=== PATIENT | male | born 1955 | race Caucasian/White ===

== ENCOUNTER 2019-02-06 05:34 | Outpatient (CLI) | payer OTHER ==
[~2019-02-06] VITALS: Ht 177.8 cm; Wt 79.1 kg
== END 2019-02-06 12:13 ==
LOC: PREOP 05:34
PROVIDERS: ATTEND Internal Medicine
DX: Z01.818 Encounter for other preprocedural examination (principal)

== ENCOUNTER 2019-02-10 08:06 | Day surgery (SDC) | payer OTHER ==
--- NOTE | 2019-01-26 07:31 | HISTORY AND PHYSICAL ---
DATE OF SERVICE: COLONOSCOPY HISTORY AND PHYSICAL HISTORY: The patient is a 63-year-old white male referred for screening colonoscopy by Dr. Terrell. I performed his only other screening colonoscopy a little over 10 years ago, at which time he had one hyperplastic polyp that removed from the distal sigmoid colon. No other abnormalities were noted. He is not aware of any family history of colon cancer. He reports he has been feeling well. He has noted no bright red blood per rectum, melena or change in bowel habit or change in weight. He reports that he feels well. PAST MEDICAL HISTORY: Noncontributory. MEDICATIONS: He takes no current medication. PAST SURGICAL HISTORY: He had an L5-S1 diskectomy with apparent fusion. He has had left inguinal hernia repair in the distant past and a tonsillectomy and adenoidectomy in the distant past. FAMILY HISTORY: His father was diagnosed with prostate cancer at the age of 54, ultimately succumbed to the disease at the age of 74. He is not aware of any family history for colon cancer or polyps. SOCIAL HISTORY: The patient is employed, with no past smoking or drinking history. REVIEW OF SYSTEMS: CONSTITUTIONAL: The patient has had no change in weight, night sweats, chills or fever. CARDIOVASCULAR: He denies chest pain, palpitations, syncope, presyncope, orthopnea, PND or pedal edema. PULMONARY: He denies cough, shortness of breath, or wheezing. GASTROINTESTINAL: As noted in the HPI. PHYSICAL EXAMINATION: GENERAL: Reveals a normal weight, well-appearing white male, in no acute distress. VITAL SIGNS: Blood pressure 126/70. CHEST: Clear to auscultation. HEENT: Oral cavity reveals Mallampati II configuration. CARDIOVASCULAR: Reveals regular rate and rhythm without murmur, S3 or S4. ABDOMEN: Soft, supple without mass, organomegaly or tenderness. EXTREMITIES: Reveal no cyanosis, clubbing or edema. RECTAL: Deferred at the time of the procedure. ASSESSMENT AND PLAN: The patient is set up for screening colonoscopy on 02/10/2019. Prep instructions with the Suprep Kit were given and questions were answered. I thank you for the referral of this pleasant gentleman. Job ID: [id number] DocumentID: [id number] Dictated Date: 01/24/2019 11:35:44 Leak Detector Date: 01/24/2019 12:00:56 Dictated By: ASHUTOSH LEON MD
[~2019-02-10] VITALS: Ht 177.8 cm; Wt 79.1 kg
[2019-02-10] VITALS (13 sets, daily range): BP systolic 95–118; BP diastolic 56–79
[2019-02-10] MEDS ORDERED: D5 LR IV SOLUTION 1,000 ML IV ONE (08:09)
[2019-02-10] MEDS ORDERED: D5 LR IV SOLUTION 1,000 ML IV STA (08:13)
[2019-02-10] MEDS ORDERED: fentaNYL INJECTION 100 MCG/2 ML AMP IVP ONE (08:15)
[2019-02-10] MEDS ORDERED: LIDOCAINE JELLY 2% 6 ML SYRINGE MM PRN (08:15)
[2019-02-10] MEDS ORDERED: LIDOCAINE JELLY 2% 6 ML SYRINGE ONE (09:00)
[2019-02-10] MEDS ORDERED: fentaNYL INJECTION 100 MCG/2 ML AMP ONE (09:00)
[2019-02-10] MEDS ORDERED: MIDAZOLAM 5 MG/5 ML (VERSED) VIAL ONE (09:00)
[2019-02-10] MEDS: MIDAZOLAM 5 MG/5 ML (VERSED) VIAL IV PRN ×2 (09:11→09:14)
--- NOTE | 2019-02-10 09:14 | Pre-Op Note & Conscious Sedat ---
Pre-Operative Progress Note H&P Reviewed The H&P was reviewed, patient examined and no changes noted. Date H&P Reviewed: Feb 10, 2019 Time H&P Reviewed: 09:00 Conscious Sedation Pre-Proced ASA Score 2 For ASA 3 and 4: Consider anesthesia and medical clearance. Also, for patients with a history of failed moderate sedation consider anesthesia. Airway Lungs Heart ASA score ASA 1: a normal healthy patient ASA 2: a patient with a mild systemic disease (mid diabetes, controlled hypertension, obesity ASA 3: a patient with a severe systemic disease that limits activity (angina, COPD, prior Myocardial infarction) ASA 4: a patient with an incapacitating disease that is a constant threat to life (CHF, renal failure) ASA 5: a moribund patient not expected to survive 24 hrs. (ruptured aneurysm) ASA 6: a declared brain- patient whose organs are being harvested. For emergent operations, add the letter E after the classification Mallampati Classification Grade 2 Sedation Plan Analgesia, Amnesia, Plan communicated to team members, Discussed options with patient/fam, Discussed risks with patient/fam The patient is an appropriate candidate to undergo the planned procedure, sedation, and anesthesia. The patient immediately re-assessed prior to indication. ASHUTOSH LEON MD Feb 10, 2019 09:14 POS
--- NOTE | 2019-02-10 22:18 | OPERATIVE REPORT ---
DATE OF SERVICE: COLONOSCOPY SUMMARY INDICATION FOR THE PROCEDURE: Screening colonoscopy. DESCRIPTION OF PROCEDURE: The patient was placed in the left lateral decubitus position. Prior to undergoing colonoscopy, digital rectal evaluation was performed. Anal sphincter tone was normal and the perianal reflexes intact. The prostate is moderately enlarged, anodular and nontender to digital inspection. No other abnormalities noted on digital inspection of the anal canal or distal rectal vault. The colonoscope was then inserted into the rectum and under direct visualization advanced to cecum. Cecum was identified by identification of the ileocecal valve and cecal strap. Photographic documentation was obtained. Careful inspection was made as the colonoscope was withdrawn. The patient tolerated the procedure well. Quality of prep was good. FINDINGS: There was no evidence for internal or external hemorrhoids and the rectum was unremarkable. Several small sigmoid diverticulum were present without evidence for diverticulitis. No other sigmoid colonic abnormalities were appreciated. The descending colon, splenic flexure, transverse colon, hepatic flexure, ascending colon and cecum were unremarkable. ASSESSMENT: No evidence for neoplasia was identified on today's procedure. As the patient is not aware of any family history for colon cancer, we would advocate consideration for repeat screening colonoscopy in 10 years. The patient did have evidence for mild diverticular disease without evidence for diverticulitis and digital evaluation of the prostate is compatible with moderate BPH without nodularity. I thank you for the referral of this pleasant gentleman. Job ID: [id number] DocumentID: [id number] Dictated Date: 02/10/2019 11:57:48 Physician Date: 02/10/2019 22:17:21 Dictated By: ASHUTOSH LEON MD
--- OUTSIDE RECORDS SUMMARY | 2019-03-08 10:08 | XMS REPORT | Continuity of Care Document ---
Author Organization Unknown Address Unknown Phone Unavailable Allergies Active Description Code Type Severity Reaction Onset Reported/Identified Relationship to Patient Clinical Status Yes No Known Drug Allergies [id number] Drug Allergy Unknown N/A 02/10/2019 Medications There is no data. Problems Date Dx Coded Attending Type Code Diagnosis Diagnosed By 02/06/2019 ASHUTOSH LEON MD Ot Z01.818 ENCOUNTER FOR OTHER PREPROCEDURAL EXAMIN 02/07/2019 ASHUTOSH LEON MD Ot Z01.818 ENCOUNTER FOR OTHER PREPROCEDURAL EXAMIN 02/10/2019 ASHUTOSH LEON MD Ot K57. 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 11 ENCOUNTER FOR SCREENING FOR MALIGNANT NE 02/10/2019 ASHUTOSH LEON MD Ot Z86.010 PERSONAL HISTORY OF COLONIC POLYPS 02/10/2019 ASHUTOSH LEON MD Ot Z90. 89 ACQUIRED ABSENCE OF OTHER ORGANS 02/15/2019 ASHUTOSH LEON MD Ot K57. 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 11 ENCOUNTER FOR SCREENING FOR MALIGNANT NE 02/15/2019 ASHUTOSH LEON MD Ot Z86.010 PERSONAL HISTORY OF COLONIC POLYPS 02/15/2019 ASHUTOSH LEON MD Ot Z90. 89 ACQUIRED ABSENCE OF OTHER ORGANS 03/02/2019 ASHUTOSH LEON MD Ot Z01.818 ENCOUNTER FOR OTHER PREPROCEDURAL EXAMIN Procedures There is no data. Results There is no data. Encounters ACCT No. Visit Date/Time Discharge Status Pt. Type Provider Facility Loc./Unit Complaint [id number] 01/08/2019 12:35:00 01/08/2019 23:59: 59 CLS Outpatient Libby Terrell [facility] [id number] 02/10/2019 08:06:00 019 10:35:00 DIS Outpatient ASHUTOSH LEON MD [facility] ENDO SCREENING [id number] 02/06/2019 05:34:00 019 12:13:00 DIS Outpatient ASHUTOSH LEON MD [facility] PREOP COLONOSCOPY
== END 2019-02-10 10:35 | disposition home or self-care (01) ==
LOC: ENDO 08:06
PROVIDERS: ATTEND Internal Medicine
DX: Z12.11 Encounter for screening for malignant neoplasm of colon (principal); K57.30 Diverticulosis of large intestine without perforation or abscess without bleeding; Z86.010 Personal history of colon polyps; Z90.89 Acquired absence of other organs